=== PATIENT | male | born 1985 | race Caucasian/White ===

== ENCOUNTER 2018-07-15 18:05 | Emergency (ER) | payer OTHER ==
--- NOTE | 2018-07-15 19:36 | RAD ---
FRONTAL VIEW CHEST: 07/15/18 INDICATION: New onset cough. No prior comparison. FINDINGS: The lungs are clear. There is mild elevation of the right hemidiaphragm. The cardiac silhouette is ac centuated by portable technique. Osseous structures are intact, where visualized. IMPRESSION: No focal consolidation. POS: NWK
--- NOTE | 2018-07-18 18:22 | EKG ---
Test Reason : CHEST TIGHTNESS Blood Pressure : / mmHG Vent. Rate : 075 BPM Atrial Rate : 075 BPM P-R Int : 132 ms QRS Dur : 086 ms QT Int : 362 ms P-R-T Axes : 023 -18 015 degrees QTc Int : 404 ms Normal sinus rhythm with sinus arrhythmia No ST elevation Normal ECG Confirmed by SALEEM ORDOÑEZ, YVON Caesy ([id number]), fashion editor SANTY TAI ([id number]) on 07/18/2018 6:21:53 PM Referred By: ERMD Confirmed By:YVON MONGE MD
== END 2018-07-15 20:55 | disposition home or self-care (01) ==
LOC: ERS 18:05
DX: J20.9 Acute bronchitis, unspecified (principal); F41.9 Anxiety disorder, unspecified; F31.9 Bipolar disorder, unspecified; F20.9 Schizophrenia, unspecified; F43.10 Post-traumatic stress disorder, unspecified; F17.210 Nicotine dependence, cigarettes, uncomplicated
CPT/HCPCS: 71045; 87081; 87430; 93005